=== PATIENT | female | born 1965 | race African-American/Black ===

== ENCOUNTER 2017-01-28 10:29 | Emergency (ER) | payer OTHER ==
[~2017-01-28] VITALS: Ht 160 cm; Wt 151.5 kg
[~2017-01-28 10:29] MED LIST: AMLODIPINE BESYL5 M1 PO; CLONIDINE0.1 PO; FLEXERIL PO; HYDROCHLOROTH12.5 M1 PO; HYDROCHLOROTHIA25 M2 PO; LOTEMAX5 GM OP; NORCO 5-325 TA1 EACH PO; TESSALON PERLE100 MG PO; VALIUM2 MG PO
[2017-01-28] MEDS ORDERED: FLEXERIL PO (10:39)
[2017-01-28] MEDS ORDERED: NEURONTIN 300300 M1 PO (10:39)
[2017-01-28] MEDS ORDERED: TRAMADOL 50 MG50 MG PO (10:40)
[2017-01-28] MEDS ORDERED: NORCO 5-325 TA1 EACH PO (10:41)
[2017-01-28] MEDS ORDERED: CARVEDILOL3.125 MG PO (10:41)
[2017-01-28] MEDS ORDERED: AMLODIPINE BESY10 MG PO (10:42)
[2017-01-28] MEDS ORDERED: NORFLEX100 MG PO (11:07)
[2017-01-28] MEDS ORDERED: PREDNISONE 10 M10 MG PO (11:07)
== END 2017-01-28 13:36 | disposition home or self-care (01) ==
LOC: ER 10:29
DX: M54.32 Sciatica, left side (principal); I10 Essential (primary) hypertension; F10.99 Alcohol use, unspecified with unspecified alcohol-induced disorder; F17.210 Nicotine dependence, cigarettes, uncomplicated; Z88.0 Allergy status to penicillin; Z91.040 Latex allergy status

== ENCOUNTER 2018-09-29 17:10 | Emergency (ER) | payer OTHER ==
[~2018-09-29] VITALS: Ht 160 cm; Wt 131.5 kg
[~2018-09-29 17:10] MED LIST changes: +AMLODIPINE BESY10 MG PO; +CARVEDILOL3.125 MG PO; +NEURONTIN 300300 M1 PO; +NORFLEX100 MG PO; +PREDNISONE 10 M10 MG PO; +TRAMADOL 50 MG50 MG PO
[2018-09-29 17:15] VITALS: BP 160/94
[2018-09-29 17:32] LABS: URINE BILIRUBIN NEGATIVE (Negative); URINE BLOOD NEGATIVE (Negative); URINE CLARITY CLEAR; URINE COLOR YELLOW; URINE GLUCOSE-RANDOM* NEGATIVE (Negative); URINE KETONES NEGATIVE (Negative); URINE LEUKOCYTES-REFLEX NEGATIVE (Negative); URINE NITRITE-REFLEX NEGATIVE (Negative); URINE PROTEIN (DIPSTICK) NEGATIVE (Negative)
== END 2018-09-29 18:38 | disposition home or self-care (01) ==
LOC: ER 17:10
PROVIDERS: Emergency Medicine
DX: M54.9 Dorsalgia, unspecified (principal); Z53.21 Procedure and treatment not carried out due to patient leaving prior to being seen by health care provider